=== PATIENT | female | born 1955 | race Caucasian/White ===

== ENCOUNTER 2017-02-04 08:08 | Inpatient (IN) | payer BC ==
--- NOTE | ~2017-02-04 | CR63 ---
[facility] A Service of [facility] & [facility] RADIOLOGY TEXT RESULTS PATIENT: DIEGO DAVILA LOCATION: [facility] [address]03-03 : 57 UNIT #: [id number] AGE: [address]: Yayo Lieberman MD SEX: F ORDER DR: [id number] [facility] [address] [facility]. [place], [place] [address] [id number] MR#: [id number] Acc #: [id number] NAME: DIEGO DAVILA : 1955 SEX: F STUDY DATE/TIME: 02/04/2017 6:22 UNIT: [facility] ROOM: 13866 STUDY DESCRIPTION: CR Chest 2 View Attending Physician: Yayo Lieberman M.D. Ordering Physician: Graham Flores M.D. Primary Care Physician: No Primary Care Physician MEDICAL IMAGING REPORT This report is preliminary unless electronic signature is present EXAM PA and lateral chest. HISTORY Chest pain radiating to the left arm starting last night. COMPARISON STUDIES 09/06/2013 FINDINGS PA and lateral views of the chest were obtained. The heart size and vascularity are normal and the lungs are clear and the bones are unremarkable. IMPRESSION No active disease. Dictated by... Shmuel Lerma M.D. THIS IS AN ELECTRONICALLY VERIFIED REPORT Shmuel Lerma M.D. at 02/04/2017 2:23 PM ANGIE/severo TD: 02/04/2017 09:19 JOB #: [id number] MEDICAL IMAGING REPORT Page 1 of 1 COPY
--- NOTE | ~2017-02-04 | HP ---
Unit #: [id number] #: [id number] Patient: DIEGO CHEN [id number] [facility]. [place], [place] [address] [id number] MR#: [id number] NAME: DIEGO CHEN ROOM: [address] Age: 61 Sex: F Admission Date: 02/04/2017 : 1955 Attending Physician: Yayo Lieberman M.D. Primary Care Physician: No Primary Care Physician HISTORY AND PHYSICAL HISTORY OF PRESENT ILLNESS This is a 61-year-old white female with no known significant medical problems, who came to the emergency room after she woke up about 4 a.m. this morning with substernal chest pressure that radiated under her left axillary region and into the left shoulder and her left arm felt heavy and numb. She said it lasted about 45 minutes. She denies any diaphoresis. She maybe became a little short of breath. No nausea, vomiting and no dizziness, presyncope or syncope. She said on the pain scale of 1-10 she would rate it about a 5 or 6. She has never had this kind of episode in the past. 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 No recent illness. No cough, fever or chills. She denies that the pain in the chest radiated up to her neck or jaw, to her back or abdomen. In the emergency room the patient's blood pressure was 152/84, heart rate 76, respiratory rate 16, temperature 97.9, O2 saturations 100% on room air. Chest x-ray did not show anything acute. EKG shows normal sinus rhythm. Initial cardiac enzymes are negative. The patient received aspirin 325 mg and nitroglycerin paste. The pain, as mentioned, resolved after about 45 minutes. The patient will be admitted for further evaluation and workup. PAST MEDICAL HISTORY 1. Denies hypertension. 2. Denies hyperlipidemia. 3. Diabetes mellitus. 4. She had recently been told her blood pressure may have been a little elevated, but currently not on any medications. No stress test or heart catheterization. 5. Active smoker. PAST SURGICAL HISTORY 1. Breast augmentation. 2. section. SOCIAL HISTORY The patient lives with her friend. 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 She smokes about a half to pack of cigarettes per day. She has been smoking since about age 19. No alcohol or illicit drug abuse. FAMILY HISTORY Her mother in her 40s from complications of diabetes mellitus. Her father is living. He is 83. Her siblings have diabetes. Unit #: [id number] #: [id number] Patient: DIEGO CHEN ALLERGIES Questionable allergy to Wellbutrin. HOME MEDICATIONS None. REVIEW OF SYSTEMS CONSTITUTIONAL: Denies fever or chills. No recent weight gain or weight loss. HEENT: Denies headache or dizziness. No visual or hearing changes. No lymphadenopathy or thyromegaly. No difficulty swallowing. CARDIOVASCULAR: Chest pain present. Denies palpitations. Had some recent lower extremity edema, but none currently. PULMONARY: Some slight shortness of breath with the chest pain. Denies paroxysmal nocturnal dyspnea or orthopnea. GI: Denies nausea, vomiting, diarrhea or abdominal pain. NEUROLOGIC: No focal weakness. PHYSICAL EXAMINATION GENERAL: Mr. Chen is a 61-year-old white female in no acute respiratory distress. She is awake, alert and oriented. VITALS: Blood pressure on admission was 152/84 and currently is 117/59, heart rate 80, respiratory rate 18, temperature 98.2, O2 saturations 99% on room air. NECK: Trachea midline. No thyromegaly or lymphadenopathy. Normal carotid upstrokes. No jugular venous distension. LUNGS: Diminished, otherwise clear. HEART: S1 and S2. Regular rate and rhythm. No clicks, murmurs or rubs. ABDOMEN: Soft and nontender. Positive bowel sounds present. EXTREMITIES: Pedal pulses are palpable. No pedal edema. DIAGNOSTIC STUDIES IMAGING: Chest x-ray preliminary results nothing acute. LABORATORY: Glucose 85, BUN 12, creatinine 0.8, EGFR 80.2, sodium 137, potassium 4.0, chloride 110, CO2 23, calcium 9.0, total protein 6.8, albumin 4.0, AST 19, ALT 18, alkaline phosphatase 89. BNP 9, white blood cell count 7.1, hemoglobin 14.1, hematocrit 42.6, platelets 360. Initial cardiac enzymes, CK-MB less than 1.0, troponin less than 0.05, CK-MB less than 1.0, troponin less than 0.05. D-dimer 369. CARDIOVASCULAR: EKG shows normal sinus rhythm. Ventricular rate 77 beats per minute. Slow R wave progression. Left atrial abnormality. Nothing acute. ASSESSMENT 1. Chest pain-new onset. Probable new onset angina. 2. Labile hypertension. Recently told blood pressure is elevated. Currently not on medication. 3. Nicotine abuse. PLAN 1. The patient has been admitted for further evaluation. On interview and exam, her symptoms are very suggestive of unstable angina. Started aspirin with a dose of Lipitor 80 mg and nitroglycerin paste. Dr. Malhotra's recommendation is to proceed with a heart catheterization to further evaluate for is chemic heart disease due to the fact that her symptoms are very suggestive of coronary artery disease. Will Unit #: [id number] #: [id number] Patient: DIEGO CHEN initiate amlodipine 5 mg p.o. daily along with low-dose beta jaci, metoprolol 12.5 mg p.o. daily. 2. Obtain a fasting lipid profile, TSH and hemoglobin A1c. 3. On exam there are no signs or symptoms of acute congestive heart failure. 4. Encouraged the patient completely quit smoking. Smoking cessation information provided to the patient. 5. Explained to the patient the risks and benefits of a heart catheterization including the risks of bleeding, myocardial infarction, stroke and even . The patient verbalizes understanding and agrees to proceed. 6. Further recommendation pending per Dr. Malhotra. Dictated by Ramya Zamarripa A.P.R.N. for Zoe Michel/brenda TD: 02/04/2017 08:57 JOB #: [id number] CC: [facility] HISTORY AND PHYSICAL Page 1 of 1 X Ramya Zamarripa APRN HISTORY AND PHYSICAL
--- NOTE | ~2017-02-04 | EKG ---
PATIENT: DIEGO DAVILA UNIT #: [id number] Ventricular Rate: 77 BPM Atrial Rate: 77 BPM P-R Interval: 144 ms QRS Duration: 88 ms Q-T Interval: 408 ms QTC Calculation(Bezet): 461 ms P [place]: 62 degrees Calculated R [place]: 69 degrees Calculated T [place]: 67 degrees Diagnosis Line: Normal sinus rhythm Diagnosis Line: Normal ECG Diagnosis Line: No previous ECGs available Diagnosis Line: Confirmed by APOLINAR YU MD ([id number]) on 02/06/2017 Diagnosis Line: 2:49:43 PM INTERPRETING MD: GIGI ZELAYA
[2017-02-04 05:56] LABS: POC - CKMB <1.0 ng/mL (0.0-7.9); POC - TROPONIN <0.05 ng/mL (<=0.05)
[2017-02-04 06:19] LABS: BASOPHIL# 0.1 X10e3 (0-0.3); BASOPHIL% 0.9 % (0-2.5); EOSINOPHIL# 0.2 X10e3 (0-0.7); EOSINOPHIL% 2.9 % (0.0-7.0); HEMATOCRIT 42.6 % (35.0-45.0); HEMOGLOBIN 14.1 gm/dL (12.0-16.0); LYMPHOCYTE# 2.7 X10e3 (1.0-3.5); LYMPHOCYTE% 37.4 % (17.0-45.0); MEAN CELL VOLUME 111.6 FL (83-96); MEAN CORPUSCULAR HEMOGLOBIN 36.9 PG (28-34); MEAN CORPUSCULAR HGB CONC 33.1 g/dL (30-36); MEAN PLATELET VOLUME 7.4 FL (6.5-11.5); MONOCYTE# 0.4 X10e3 (0-1.0); MONOCYTE% 5.9 % (3.0-12.0); NEUTROPHIL# 3.8 X10e3 (1.5-7.1); NEUTROPHIL% 52.9 % (40-75); PLATELET COUNT 360 X10e3 (140-420); RED BLOOD COUNT 3.82 X10e (3.90-5.30); RED CELL DISTRIBUTION WIDTH 14.2 % (11.0-15.5); WHITE BLOOD COUNT 7.1 X10e3 (4.0-10.5)
[2017-02-04 06:21] LABS: DIFF IND YES
[2017-02-04 06:48] LABS: BILIRUBIN, DIRECT 0.1 mg/dL (0.0-0.2); BILIRUBIN,INDIRECT 0.4 mg/dL (0.0-0.9); BILIRUBIN,TOTAL 0.5 mg/dL (0.2-2.0); CREATININE SERUM 0.8 mg/dL (0.6-1.4); GLOM FILT RATE Estimated 80.2 mL/min (>60); PROTEIN TOTAL SERUM 6.8 g/dL (6.0-8.3)
[2017-02-04 07:01] LABS: PLATELET ESTIMATE NORMAL (NORMAL)
[2017-02-04 08:03] LABS: POC - CKMB <1.0 ng/mL (0.0-7.9); POC - TROPONIN <0.05 ng/mL (<=0.05)
[~2017-02-04 08:08] MED LIST: NO MEDICATIONS
[2017-02-04 13:44] LABS: CHOLESTEROL 250 mg/dL (0-200); HDL CHOLESTEROL 59 mg/dL (35-95); LDL/HDL RATIO 3 RATIO (0-4); TRIGLYCERIDES 91 mg/dL (10-160)
[2017-02-04 13:45] LABS: LDL CHOLESTEROL 173 mg/dL (-130)
== END 2017-02-05 22:20 | disposition home or self-care (01) | DRG 287 ==
LOC: CED 08:08 → CEDOF 08:09
PROVIDERS: Emergency Medicine; Internal Medicine Cardiovascular Disease
PROC: 4A023N7 Measurement of Cardiac Sampling and Pressure, Left Heart, Percutaneous Approach (ICD-10-PCS; principal; 2017-02-04)
PROC: B211YZZ Fluoroscopy of Multiple Coronary Arteries using Other Contrast (ICD-10-PCS; 2017-02-04)
PROC: B215YZZ Fluoroscopy of Left Heart using Other Contrast (ICD-10-PCS; 2017-02-04)
DX: I25.119 Atherosclerotic heart disease of native coronary artery with unspecified angina pectoris (principal); I10 Essential (primary) hypertension; F17.210 Nicotine dependence, cigarettes, uncomplicated; Z71.6 Tobacco abuse counseling; J44.9 Chronic obstructive pulmonary disease, unspecified
CPT/HCPCS: 36415; 71020; 80048; 80061; 80076; 82553; 83880; 84443; 84484; 85025; 85379; 93005; 99285; C1769; C1887; C1894; J1644; J2250; J3010